=== PATIENT | male | born 1970 | race Caucasian/White ===

== ENCOUNTER → 2021-05-11 | Outpatient (CLI) | payer OTHER ==
--- NOTE | 2021-05-11 12:35 | 2DMMODE ---
[facility] [place] [address] 2 D/M-MODE ECHOCARDIOGRAM Name: MARISSA LAWRENCE Room #: REG RICKIE Malone.#: [id number] Admission: 05/11/21 Attend Phys: Darnell Lee Discharge: Date of : 72 Report #: [id number] THIS REPORT FOR: cc: FAM - Family physician unknown FAM - Family physician unknown Anthony Bernard MD [facility] ~ APPROVED REPORT Study performed: 05/11/2021 10:17:36 EXAM: Comprehensive 2D, Doppler, and color-flow Echocardiogram Patient Location: Out-Patient Room #: 2 Status: routine BSA: 2.13 HR: 54 bpm BP: 136/80 mmHg Rhythm: Bradycardia Other Information Study Quality: Good Indications Abnormal ECG 2D Dimensions RVDd: 37.46 mm IVSd: 11.03 (7-11mm) LVOT Diam: 20.87 (18-24mm) LVDd: 41.93 mm PWd: 9.70 (7-11mm) LVDs: 28.86 (25-40mm) Left Atrium: 38.71 (27-40mm) Aortic Root: 32.01 mm IVC: 13.00 mm Volumes Left Atrial Volume (Systole) Single Plane 4CH: 46.85 mL Single Plane 2CH: 43.19 mL LA ESV Index: 23.00 mL/m2 Aortic Valve AoV Peak Ben.: 1.26 m/s AO Peak Gr.: 6.36 mmHg LVOT Max P.72 mmHg LVOT Max V: 1.09 m/s TANMAY Vmax: 2.94 cm2 [facility] [address] [address] 2 D/M-MODE ECHOCARDIOGRAM Name: MARISSA LAWRENCE Room #: REG Oz#: [id number] Admission: 05/11/21 Attend Phys: Darnell Garcia Discharge: Date of : 72 Report #: [id number] Mitral Valve E/A Ratio: 1.0 MV Decel. Time: 189.38 ms MV E Max Ben.: 0.77 m/s MV A Ben.: 0.78 m/s MV PHT: 54.92 ms IVRT: 143.02 ms Pulmonary Valve PV Peak Ben.: 1.00 m/s PV Peak Gr.: 3.99 mmHg Pulmonary Vein P Vein S: 0.43 m/s P Vein A: 0.30 m/s P Vein D: 0.46 m/s P Vein A Dur.: 96.9 msec P Vein S/D Ratio: 0.93 Tricuspid Valve TR Peak Ben.: 2.05 m/s TR Peak Gr.: 16.85 mmHg Left Ventricle The left ventricle is normal size. There is normal LV segmental wall motion. There is normal left ventricular wall thickness. Left ventricular systolic function is normal. The left ventricular ejection fraction is within the normal range. LVEF is 55-60%. The left ventricular diastolic function is normal. Right Ventricle The right ventricle is normal size. The right ventricular systolic function is normal. Atria The left atrium size is normal. The right atrium size is normal. Aortic Valve The aortic valve is normal in structure. No aortic regurgitation is present. There is no aortic valvular stenosis. Mitral Valve The mitral valve is normal in structure. There is no mitral valve regurgitation noted. No evidence of mitral valve stenosis. Tricuspid Valve The tricuspid valve is normal in structure. There is trace tricuspid [facility] [address] [place] [address] 2 D/M-MODE ECHOCARDIOGRAM Name: MARISSA LAWRENCE Room #: REG [facility]#: [id number] Admission: 05/11/21 Attend Phys: Darnell Garcia Discharge: Date of : 72 Report #: [id number] regurgitation. There is no pulmonary hypertension. Pulmonic Valve The pulmonary valve is normal in structure. There is no pulmonic valvular regurgitation. Great Vessels The aortic root is normal in size. IVC is normal in size and collapses >50% with inspiration. Pericardium There is no pericardial effusion. <Conclusion> Normal left ventricular size/wall thickness Ejection fraction 60% Normal right ventricular size/function Normal atrial size Color-flow Doppler study was performed of the aortic/mitral/tricuspid/pulmonary valve Normal aortic/mitral valve structure and function Trace tricuspid valve insufficiency Normal aortic root size No pericardial effusion <ELECTRONICALLY SIGNED> By: Anthony Bernard MD, FAC 05/11/21 1235 1235 1235 Anthony Bernard MD, FAC /INF
--- NOTE | 2021-05-11 13:43 | EKG ---
[place] [address] 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 : 1970 Requested By: Darnell Sanches Order Number: [id number] MD: Anthony Bernard Measurements Intervals [place] Rate: 55 P: -11 W[place]: 187 QRS: -30 QRSD: 97 T: 4 QT: 407 QTc: 390 Interpretive Statements Sinus rhythm Left axis deviation Abnormal R-wave progression, early transition No previous ECG available for comparison Electronically Signed On 05-11-2021 13:43:15 CDT by Anthony Bernard [email or web address] <ELECTRONICALLY SIGNED> By: Anthony Bernard MD, [facility] 05/11/21 1343 1150 1150 Anthony Bernard MD, FACC /EPI
== END ==
LOC: CV 11:34
PROVIDERS: ATTEND Chiropractor
DX: I51.9 Heart disease, unspecified (principal); R94.31 Abnormal electrocardiogram [ECG] [EKG]